=== PATIENT | female | born 1930 | race Caucasian/White ===

== ENCOUNTER 2018-01-20 08:52 | Observation (INO) | payer OTHER ==
[~2018-01-20] VITALS: Ht 149.9 cm; Wt 65.5 kg
[2018-01-20 10:04] LABS: HEMOGLOBIN 13.5 G/DL (11.9-15.5); MCH 31.9 PG (29.0-34.0); MCHC 36.5 G/DL (30.0-36.0); MCV 87.5 FL (83-99); PLATELET COUNT 268 K/uL (156-360); RBC DIS.WIDTH-CV 13.5 % (11.8-14.6); RBC DIS.WIDTH-SD 43.6 % (39-53); RED BLOOD COUNT 4.23 M/uL (3.80-5.20); WHITE BLOOD COUNT 7.7 K/uL (4.1-10.2)
[2018-01-20 10:13] LABS: ALBUMIN 3.7 g/dL (3.2-4.8); CHLORIDE 95 mEq/L (99-109); POTASSIUM 3.2 mEq/L (3.7-5.4); SODIUM 130 mEq/L (136-147)
[2018-01-20 10:15] LABS: GLUCOSE 107 mg/dL (70-99)
[2018-01-20 10:16] LABS: TOTAL PROTEIN 6.1 g/dL (6.4-8.3)
[2018-01-20 10:17] LABS: TOTAL BILIRUBIN 0.7 mg/dL (0.0-1.0)
[2018-01-20 10:19] LABS: ALKALINE PHOSPHATASE 65 IU/L (3-129); CREATININE 0.7 mg/dL (0.6-1.3); GFR ESTIMATE (CALCULATED) > 59 mL/min/
[2018-01-20 10:20] LABS: UREA NITROGEN (BUN) 13 mg/dL (9-23)
[2018-01-20 10:21] LABS: AST (GOT) 20 IU/L (2-34)
[2018-01-20 10:22] LABS: ALT (GPT) 19 IU/L (3-49); LIPASE 10 U/L (1.0-51.0)
[2018-01-20 11:36] LABS: APPEARANCE CLEAR ((CLEAR)); BILIRUBIN NEGATIVE; BLOOD NEGATIVE; COLOR YELLOW ((YELLOW)); GLUCOSE (STRIP) NEGATIVE; KETONES 5; LEUKOCYTES NEGATIVE; NITRITE NEGATIVE; PROTEIN (STRIP) NEGATIVE; SPECIFIC GRAVITY 1.028 (1.000-1.030); UCUL ADDED? NO; UROBILINOGEN 0.2 MG/DL (0.2-1.0)
[2018-01-20] MEDS ORDERED: SIMVASTATIN40 MG PO (15:48)
[2018-01-20] MEDS ORDERED: LYRICA200 MG PO (15:48)
[2018-01-20] MEDS ORDERED: LOSARTAN-HCTZ1 EAC1 PO (15:49)
[2018-01-20] MEDS ORDERED: EVISTA60 MG PO (15:49)
[2018-01-20] MEDS ORDERED: DULOXETINE HCL60 MG PO (15:49)
[2018-01-20] MEDS ORDERED: PRESERVISION T1 EACH PO (15:51)
[2018-01-20] MEDS ORDERED: MICRO-K10 ME2 PO (15:51)
[2018-01-20] MEDS ORDERED: VITAMIN B-6100 MG PO (15:52)
[2018-01-20] MEDS ORDERED: CYANOCOBALAM1000 MCG PO (15:52)
[2018-01-20] MEDS ORDERED: CALTRATE 600 +1 EAC1 PO (15:54)
[2018-01-20] MEDS ORDERED: FISH OIL 1,2001 EAC4 PO (15:57)
[2018-01-20] MEDS ORDERED: TYLENOL EXTRA500 MG PO (15:58)
[2018-01-20 17:48] VITALS: BP 164/89
[2018-01-20 20:30] VITALS: BP 146/70
[2018-01-20 23:50] VITALS: BP 172/76
[2018-01-21 04:02] VITALS: BP 160/74
[2018-01-21 05:26] LABS: HEMATOCRIT 35.3 % (36.0-46.0); HEMOGLOBIN 12.5 G/DL (11.9-15.5); MCH 31.3 PG (29.0-34.0); MCHC 35.4 G/DL (30.0-36.0); MCV 88.5 FL (83-99); PLATELET COUNT 264 K/uL (156-360); RBC DIS.WIDTH-CV 13.9 % (11.8-14.6); RBC DIS.WIDTH-SD 45.2 % (39-53); RED BLOOD COUNT 3.99 M/uL (3.80-5.20)
[2018-01-21 05:51] LABS: ALBUMIN 3.5 G/DL (3.2-4.8); ALKALINE PHOSPHATASE 44 IU/L (3-129); ALT (GPT) 15 IU/L (3-49); AST (GOT) 17 IU/L (2-34); CHLORIDE 98 MEQ/L (99-109); CREATININE 0.6 MG/DL (0.6-1.3); GFR ESTIMATE (CALCULATED) > 59 mL/min/; GLUCOSE 140 mg/dL (70-99); POTASSIUM 3.1 MEQ/L (3.7-5.4); SODIUM 130 MEQ/L (136-147); TOTAL BILIRUBIN 0.5 MG/DL (0.0-1.0); TOTAL PROTEIN 5.7 G/DL (6.4-8.3); UREA NITROGEN (BUN) 8 mg/dL (9-23)
[2018-01-21 07:29] VITALS: BP 143/62
[2018-01-21 11:32] VITALS: BP 147/63
[2018-01-21 16:18] VITALS: BP 128/58
[2018-01-21 19:45] VITALS: BP 133/63
[2018-01-22 00:03] VITALS: BP 143/72
[2018-01-22 04:00] VITALS: BP 137/72
[2018-01-22 07:46] VITALS: BP 147/66
[2018-01-22 12:03] VITALS: BP 100/70
[2018-01-22] MEDS ORDERED: CIPRO500 MG PO (14:42)
[2018-01-22] MEDS ORDERED: FLAGYL500 MG/100 PO (14:51)
[2018-01-22] MEDS ORDERED: MICRO-K10 ME2 PO (14:53)
[2018-01-22 15:47] VITALS: BP 102/70
== END 2018-01-22 16:43 | disposition home or self-care (01) ==
LOC: EME 08:52 → EDOF 14:57 → 4SOUTH 14:57 → ENRESERV 15:00 → 4SOUTH 17:21
PROVIDERS: Emergency Medicine; Internal Medicine
DX: K52.9 Noninfective gastroenteritis and colitis, unspecified (principal); E87.6 Hypokalemia; E87.1 Hypo-osmolality and hyponatremia; I10 Essential (primary) hypertension; M19.90 Unspecified osteoarthritis, unspecified site; Z96.659 Presence of unspecified artificial knee joint; R42 Dizziness and giddiness; G62.9 Polyneuropathy, unspecified; Z88.2 Allergy status to sulfonamides
CPT/HCPCS: 74177; 80053; 81003; 83690; 85027; 99281; 99285; G0378; J0744; J1644; J1956; J2405; J7030; J7042; S0030